=== PATIENT | male | born 1950 | race Caucasian/White ===

== ENCOUNTER 2016-04-20 07:23 | Day surgery (SDC) | payer BC ==
--- NOTE | ~2016-04-20 | EGD ---
EGD REPORT [facility] [address] [place]. [id number] NAME: SAMINA MAGANA : 46 STATUS : [place] [facility] [place] PAT#: [id number] AGE: 65 ADM/REG DATE : 04/20/16 MR#: [id number] REPORT SERV DATE: 04/20/16 DICTATED BY: JEANINE GARCIA DATE: 04/20/16 REPORT STATUS : Draft TRANSCRIBED BY: [facility] DATE: 04/20/16 Endoscopy Center Patient Name: Samina Magana Date of : 1950 Attending MD: JEANINE GARCIA MD Procedure Date No Time: 04/20/2016 Procedure: Colonoscopy Indications: Screening for colorectal malignant neoplasm Referring MD: AL AZUL MD Medicines: as per anesthesia Complications: No immediate complications. Procedure: Pre-Anesthesia Assessment: - ASA Grade Assessment: III - A patient with severe systemic disease. After I obtained informed consent, the scope was passed under direct vision. Throughout the procedure, the patient's blood pressure, pulse, and oxygen saturations were monitored continuously. The PCF [id number] was introduced through the anus and advanced to the cecum, identified by appendiceal orifice and ileocecal valve. The colonoscopy was performed without difficulty. The patient tolerated the procedure. The quality of the bowel preparation was adequate to identify polyps. Findings: The perianal and digital rectal examinations were normal. A single small-mouthed diverticulum was found in the descending colon. Internal hemorrhoids were found during endoscopy and were mild. Impression: - Diverticulosis in the descending colon. - Internal hemorrhoids. Recommendation: - Repeat colonoscopy in 10 years for surveillance. Procedure Code(s): --- Professional --- 64351, Colonoscopy, flexible, proximal to splenic flexure; diagnostic, with or without collection of specimen(s) by brushing or washing, with or without colon decompression (separate procedure) Diagnosis Code(s): --- Professional --- K64.8, Other hemorrhoids K57.30, Diverticulosis of large intestine without perforation or abscess without bleeding Z12.11, Encounter for screening for malignant neoplasm EGD REPORT [place] [id number] [address] [address]. [id number] NAME: SAMINA MAGANA : [birth year] STATUS : [place] [facility] [place] PAT#: [id number] AGE: 65 ADM/REG DATE : 04/20/16 MR#: [id number] REPORT SERV DATE: 04/20/16 DICTATED BY: JEANINE GARCIA. DATE: 04/20/16 REPORT STATUS : Draft TRANSCRIBED BY: [employer] DATE: 04/20/16 of colon CPT copyright 2013 [employer]. All rights reserved. The codes documented in this report are preliminary and upon director of collections and archives review may be revised to meet current compliance requirements. JEANINE GARCIA MD 04/20/2016 9:38 AM This report has been signed electronically. Number of Addenda: 0 Note Initiated On: 04/20/2016 9:14 AM Scope Withdrawal Time 0 hours 7 minutes 58 seconds [id number] [id number]
[~2016-04-20 07:23] MED LIST: ALTACE10 MG PO; ASAB PO; CARDCD120 PO; NORCO1 TAB PO; XARELTO20 MG PO; ZOCOR40 PO
== END 2016-04-20 23:59 | disposition home health service (06) ==
LOC: DMU 07:23
PROVIDERS: Internal Medicine Gastroenterology
PROC: 0DJD8ZZ Inspection of Lower Intestinal Tract, Via Natural or Artificial Opening Endoscopic (ICD-10-PCS; principal; 2016-04-20 08:30)
DX: Z12.11 Encounter for screening for malignant neoplasm of colon (principal); K64.8 Other hemorrhoids; K57.30 Diverticulosis of large intestine without perforation or abscess without bleeding; I10 Essential (primary) hypertension; E78.00 Pure hypercholesterolemia, unspecified; I48.91 Unspecified atrial fibrillation; G47.33 Obstructive sleep apnea (adult) (pediatric); Z99.81 Dependence on supplemental oxygen; Z87.442 Personal history of urinary calculi; Z98.890 Other specified postprocedural states